=== PATIENT | female | born 1975 | race Caucasian/White ===

== ENCOUNTER 2019-02-02 09:54 | Day surgery (SDC) | payer OTHER ==
[2019-02-02] MEDS ORDERED: FENTAnyl 50 MCG/ML VIAL ×2 (12:58→17:21)
[2019-02-02] MEDS ORDERED: MIDAZOLAM 1 MG/ML 2 ML INJ ×4 (12:58→12:59)
== END 2019-02-02 17:49 | disposition home or self-care (01) ==
LOC: GIL 09:54
DX: K64.8 Other hemorrhoids (principal); K44.9 Diaphragmatic hernia without obstruction or gangrene; K21.9 Gastro-esophageal reflux disease without esophagitis
CPT/HCPCS: 43239; 88305; 88312